=== PATIENT | male | born 1980 | race Caucasian/White ===

== ENCOUNTER 2020-04-25 15:49 | Inpatient (IN) | payer OTHER ==
--- NOTE | 2020-04-25 18:12 | BHS.RME ---
Substance Use & Tx History - Substance Use History Heroin Substance amount: 2 bundles Frequency of use: Daily Substance route: Injection (ex: intravenous or skin popping) Alcohol Substance amount: 2 pints Frequency of use: Daily Substance route: Oral Cannabis Frequency of use: Daily Substance route: Inhalation (ex: sniffing or snorting) Cocaine- Powder Substance amount: " I don't know how much " Frequency of use: Daily Substance route: Injection (ex: intravenous or skin popping) Benzodiazepines Substance amount: 1-2 sticks Frequency of use: Less than 3 times per week Substance route: Oral - Last Treatment Date of last treatment: december 2019 Where was last treatment: Detox Physical/Psych/Mental Status - Behavior General Behavior: Increased activity (restlessness, agitation) - Cooperativeness Cooperativeness: Reluctant, Hostile - Thinking Thought Processes: Logical Thought content: Future oriented - Physical Health Problems Is patient presently having any pain?: No Does patient presently have any injuries (include location): No Does patient currently have a fever: No COWS - Scale Resting Pulse: 0= [place] 80 or Below Sweatin= Chills/Flushing Restless Observation: 3= Extraneous Movement Pupil Size: 0= Normal to Room Light Bone or Joint Aches: 2= Severe Diffuse Aches Runny Nose/ Eye Tearin= Nasal Congestion GI Upset > 30mins: 0= None Tremor Observation: 1= Tremor [place], Not Seen Yawning Observation: 0= None Anxiety or Irritability: 4=Extreme Anxiety Goose Flesh Skin: 0=Smooth Skin COWS Score: 12 CIWA Nausea/Vomitin-No Nausea/No Vomiting Muscle Tremors: 1-None Visible, but [place] Anxiety: 4-Mod. Anxious/Guarded Agitation: 4-Moderately Restless Paroxysmal Sweats: 2 Orientation: 1-Uncertain about Date Tacttile Disturbances: 0-None Auditory Disturbances: 2-Mild Harshness/Frighten Visual Disturbances: 2-Mild Sensitivity Headache: 2-Mild CIWA-Ar Total Score: 18
--- NOTE | 2020-04-25 18:14 | HP ---
COWS - Scale Resting Pulse: 0= [place] 80 or Below Sweatin=Flushed/Facial Moisture Restless Observation: 5= Unable to Sit Still Pupil Size: 1= Pupils >than Normal Bone or Joint Aches: 4=Acute Joint/Muscle Pain Runny Nose/ Eye Tearin= Runny Nose/Eyes GI Upset > 30mins: 0= None Tremor Observation: 1= Tremor [place], Not Seen Yawning Observation: 2= >3x During Session Anxiety or Irritability: 4=Extreme Anxiety Goose Flesh Skin: 0=Smooth Skin COWS Score: 21 CIWA Score Nausea/Vomitin-No Nausea/No Vomiting Muscle Tremors: 1-None Visible, but [place] Anxiety: 4-Mod. Anxious/Guarded Agitation: 4-Moderately Restless Paroxysmal Sweats: 2 Orientation: 1-Uncertain about Date Tacttile Disturbances: 0-None Auditory Disturbances: 2-Mild Harshness/Frighten Visual Disturbances: 2-Mild Sensitivity Headache: 2-Mild CIWA-Ar Total Score: 18 - Admission Criteria OASAS Guidelines: Admission for Medically Managed Detox: Requires at least one of the followin. CIWA greater than 12 2. Seizures within the past 24 hours 3. Delirium tremens within the past 24 hours 4. Hallucinations within the past 24 hours 5. Acute intervention needed for co occurring medical disorder 6. Acute intervention needed for co occurring psychiatric disorder 7. Severe withdrawal that cannot be handled at a lower level of care (continued vomiting, continued diarrhea, abnormal vital signs) requiring intravenous medication and/or fluids 8. Admission ROS [facility] Allergies/Adverse Reactions: Allergies Allergy/AdvReac Type Severity Reaction Status Date / Time No Known Allergies Allergy Verified 04/25/20 18:08 History of Present Illness: 39 y.o. male requesting detox from heroin and alcohol use , latest use of alcohol yesterday , latest use of heroin was today . First age of use 13 for both heroin and alcohol . Pt is very poor historian due to withdrawal symptoms . tobacco : denies PMHX /PSHX : denies Exam Limitations: Clinical Condition - Review of Systems Constitutional: See HPI, Loss of Appetite EENT: reports: Nose Congestion Respiratory: reports: No Symptoms reported Cardiac: reports: No Symptoms Reported GI: reports: See HPI, Nausea, Poor Appetite : reports: No Symptoms Reported Musculoskeletal: reports: See HPI, Back Pain Integumentary: reports: See HPI Neuro: reports: Headache, Tremors Psychiatric: reports: Agitated, Anxious, Disorientated Patient History - Smoking Cessation Smoking history: Unknown if ever smoked Admission Physical Exam [facility] - Physical General Appearance: Yes: Disheveled, Severe Distress, Irritable, Sweating, Anxious HEENTM: Yes: Normocephalic, Normal Voice Respiratory: Yes: Chest Non-Tender, Lungs Clear, Normal Breath Sounds, No Respiratory Distress, No Accessory Muscle Use Neck: Yes: No masses,lesions,Nodules, Trachea in good position Cardiology: Yes: Regular Rhythm, Regular Rate, S1, S2 Abdominal: Yes: Non Tender, Soft Back: Yes: Normal Inspection Musculoskeletal: Yes: Gait Steady Extremities: Yes: Normal Range of Motion, Non-Tender, Tremors Neurological: Yes: Alert, Motor Strength 5/5 Integumentary: Yes: Warm, Track Bennett (bj UE / LE w/ erythema left wrist) - Diagnostic (1) Opioid dependence Current Visit: Yes Status: Acute Qualifiers: Substance use status: in withdrawal Qualified Code(s): F11.23 - Opioid dependence with withdrawal (2) Alcohol use disorder Current Visit: Yes Status: Chronic (3) Cocaine use disorder Current Visit: Yes Status: Chronic (4) Sedative abuse Current Visit: Yes Status: Suspected Inpatient Rehab Admission - Rehab Decision to Admit Inpatient rehab admission?: No
[2020-04-25] MEDS ORDERED: IBUPROFEN 400 MG TABLET (FP) PO PRN (18:17)
[2020-04-25] MEDS ORDERED: MENTHOL/PHENOL 1 EACH UD MM PRN (18:17)
[2020-04-25] MEDS ORDERED: MAG HYDROX/AL HYDROX/SIMETH 30 ML UNIT-DOSE CUP PO PRN (18:17)
[2020-04-25] MEDS ORDERED: NICOTINE POLACRILEX 2 MG GUM BUC PRN (18:17)
[2020-04-25] MEDS ORDERED: METHOCARBAMOL 500 MG TABLET PO PRN (18:17)
[2020-04-25] MEDS ORDERED: MAGNESIUM HYDROX 2400MG/30ML ORAL SUSPENSION 30 ML CUP PO PRN (18:17)
[2020-04-25] MEDS ORDERED: hydrOXYzine PAMOATE 25 MG CAPSULE (FP) PO PRN (18:17)
[2020-04-25] MEDS ORDERED: ACETAMINOPHEN 325 MG TABLET (FP) PO PRN ×2 (18:17)
[2020-04-25] MEDS ORDERED: MAGNESIUM CITRATE 300 ML BOTTLE PO PRN (18:17)
[2020-04-25] MEDS ORDERED: MELATONIN 5 MG TABLETS PO PRN (18:17)
[2020-04-25] MEDS ORDERED: ONDANSETRON *ODT* 4 MG TABLET SL ONE (18:17)
[2020-04-25] MEDS ORDERED: BISMUTH SUBSALICYLATE 524 MG/30 ML UD PO PRN (18:17)
[2020-04-25] MEDS ORDERED: chlordiazePOXIDE HCL 25 MG CAPSULE PO PRN (18:19)
[2020-04-25] MEDS ORDERED: METHADONE HCL 10 MG TABLET (FOR DETOX USE ONLY) PO ONE (18:20)
[2020-04-25] MEDS ORDERED: ONDANSETRON *ODT* 4 MG TABLET SL PRN (18:22)
[2020-04-25 18:23] VITALS: BMI 25.5
[2020-04-25] MEDS: chlordiazePOXIDE HCL 25 MG CAPSULE PO ONE ×2 (19:11→19:21)
[2020-04-25] MEDS: THIAMINE HCL 100 MG TABLET (FP) PO SCH (22:22)
[2020-04-25] MEDS: chlordiazePOXIDE HCL 25 MG CAPSULE PO SCH (22:22)
[2020-04-26] MEDS: chlordiazePOXIDE HCL 25 MG CAPSULE PO SCH ×4 (04:49→22:33)
[2020-04-26] MEDS ORDERED: METHOCARBAMOL 500 MG TABLET PO ONE (09:52)
[2020-04-26] MEDS ORDERED: DICYCLOMINE HCL 10 MG CAPSULE PO ONE (09:56)
--- NOTE | 2020-04-26 09:56 | CONSULT ---
[facility] Psychiatric Consult - Data Date of interview: 04/26/20 Admission source: [facility] Identifying data: Patient is a 39 year old single male, without children, unemployed, homeless, and is supported by [facility]. This is patient's first admission to detox at [facility]. Patient admitted to for alcohol, cocaine, opiate, and sedative dependence. Substance Abuse History: History of alcohol, opioid, cocaine, and sedative use. Medical History: denies Psychiatric History: Patient denies history of psychiatric hospitalization and outpatient care. Mr. Zhang reports history of several suicide attempt. Patient presents as irritable and agitated. Patient not interested in psychiatric services. Mr. Zhang informed typewriter mechanic that he plans on signing out after receiving his morning medications. Physical/Sexual Abuse/Trauma History: Not discussed. Mental Status Exam - Mental Status Exam Alert and Oriented to: Time, Place, Person Cognitive Function: Fair Patient Appearance: Unkempt Mood: Irritable Affect: Mood Congruent Patient Behavior: Agitated Speech Pattern: Clear Voice Loudness: Normal Thought Process: Goal Oriented Hallucinations: Denies Suicidal Ideation: Denies Homicidal Ideation: Denies Insight/Judgement: Poor Sleep: Fair Appetite: Fair Muscle strength/Tone: Normal Gait/Station: Normal Psychiatric Findings - Problem List ([place] 1, 2,3) (1) Substance induced mood disorder Current Visit: Yes Status: Acute (2) Opioid dependence Current Visit: Yes Status: Acute Qualifiers: Substance use status: in withdrawal Qualified Code(s): F11.23 - Opioid dependence with withdrawal (3) Alcohol use disorder Current Visit: Yes Status: Acute (4) Cocaine use disorder Current Visit: Yes Status: Acute (5) Sedative abuse Current Visit: Yes Status: Acute - Initial Treatment Plan Initial Treatment Plan: Psychoeducation provided. Detoxification in progress. Observation.
[2020-04-26] MEDS ORDERED: ONDANSETRON *ODT* 4 MG TABLET SL ONE (09:57)
--- NOTE | 2020-04-26 09:58 | EKG ---
Test Reason : Blood Pressure : / mmHG Vent. Rate : 062 BPM Atrial Rate : 062 BPM P-R Int : 164 ms QRS Dur : 084 ms QT Int : 462 ms P-R-T Axes : 073 035 026 degrees QTc Int : 468 ms SINUS RHYTHM with APCs OTHERWISE NORMAL ECG NO PREVIOUS ECGS AVAILABLE Confirmed by MD CLEMENCIA, LIZ ([id number]) on 04/26/2020 9:58:10 AM Referred By: Confirmed By:LIZ KHANNA MD
[2020-04-26] MEDS ORDERED: hydrOXYzine PAMOATE 50 MG CAPSULE (FP) PO SCH (10:00)
[2020-04-26] MEDS ORDERED: METHADONE (DETOX) 20 MG, METHADONE (DETOX) 5 MG PO ONE (10:00)
[2020-04-26] MEDS: PRENATAL VITAMINS W/ FOLIC ACID TABLET (FP) PO SCH (10:19)
[2020-04-26] MEDS ORDERED: METHADONE HCL 10 MG TABLET (FOR DETOX USE ONLY) ONE (10:21)
[2020-04-26] MEDS ORDERED: METHADONE HCL 5 MG TABLET (FOR DETOX USE ONLY) ONE (10:22)
--- NOTE | 2020-04-26 10:35 | PN ---
S CIWA - CIWA Score Nausea/Vomitin-Mild Nausea/No Vomiting Muscle Tremors: 2 Anxiety: 3 Agitation: 4-Moderately Restless Paroxysmal Sweats: 1-Minimal Palms Moist Orientation: 0-Oriented Tacttile Disturbances: 0-None Auditory Disturbances: 0-None Visual Disturbances: 2-Mild Sensitivity Headache: 3-Moderate CIWA-Ar Total Score: 16 BHS COWS - Scale Resting Pulse: 0= [place] 80 or Below Sweatin= Chills/Flushing Restless Observation: 0= Sits Still Pupil Size: 1= Pupils >than Normal Bone or Joint Aches: 2= Severe Diffuse Aches Runny Nose/ Eye Tearin= None GI Upset > 30mins: 2= Nausea/Diarrhea Tremor Observation of Outstretched Hands: 2= Slight Tremor Visible Yawning Observation: 0= None Anxiety or Irritability: 2=Irritable/Anxious Goose Flesh Skin: 3=Piloerection COWS Score: 13 S Progress Note (SOAP) Subjective: 39 years old male admitted on 04/25/20 for alcohol benzo opiate withdrawal sx management treating with librium and methadone detox regiment agitative restlessness trouble sleep at night belsomra 5 mg po x 1 anxiety restlessness 100 mg vistaril q6h x 2 days muscle cramping robaxin 500 mg po x 1 abdominal cramping bentyl 20 mg po x 1 nausea zofran 8 mg sl x 1 Objective: 04/26/20 10:41 Vital Signs - 24 hr 04/25/20 04/25/20 04/25/20 18:19 18:55 21:08 Temperature 98.4 F 98.0 F 97.8 F Pulse Rate 65 53 L 59 L Respiratory 16 18 17 Rate Blood Pressure 109/70 133/86 128/71 O2 Sat by Pulse 100 100 Oximetry (%) 04/26/20 04/26/20 05:51 08:35 Temperature 97.7 F 96.8 F L Pulse Rate 84 67 Respiratory 18 16 Rate Blood Pressure 144/89 120/60 O2 Sat by Pulse 100 Oximetry (%) 04/26/20 10:41 lab pending Assessment: 04/26/20 10:42 alcohol benzo opiate withdrawal Plan: librium and methadone regiments therapeutic comfort measure
[2020-04-26 11:51] LABS: HEMOGLOBIN 11.6 GM/dL (11.7-16.9); MCHC 32.2 g/dl (32.0-35.9); MEAN CELL VOLUME 87.1 fl (80-96); MEAN PLT VOLUME 8.4 fl (7.5-11.1); PLATELET COUNT 151 K/MM3 (134-434); RBC 4.14 M/mm3 (4.00-5.60); RDW 13.7 % (11.9-15.9); WHITE BLOOD COUNT 6.5 K/mm3 (4.0-10.0)
[2020-04-26 12:03] LABS: BILIRUBIN,TOTAL 0.3 mg/dL (0.2-1); BLOOD UREA NITROGEN 14.6 mg/dL (7-18); CALCIUM 8.3 mg/dL (8.5-10.1); CREATININE 0.7 mg/dL (0.55-1.3); POTASSIUM 3.9 mmol/L (3.5-5.1); TOT PROT 6.5 g/dl (6.4-8.2)
[2020-04-26] MEDS: hydrOXYzine PAMOATE 50 MG CAPSULE (FP) PO SCH ×3 (13:04→23:07)
[2020-04-26] MEDS ORDERED: SUVOREXANT 5 MG TABLET PO ONE (22:00)
[2020-04-26] MEDS: THIAMINE HCL 100 MG TABLET (FP) PO SCH (22:33)
[2020-04-27] MEDS: hydrOXYzine PAMOATE 50 MG CAPSULE (FP) PO SCH ×2 (06:25→11:06)
[2020-04-27] MEDS: chlordiazePOXIDE HCL 25 MG CAPSULE PO SCH ×2 (06:25→10:33)
[2020-04-27 08:58] VITALS: BP 124/77; PULSE 65; TEMP 97.3
[2020-04-27] MEDS ORDERED: METHADONE HCL 10 MG TABLET (FOR DETOX USE ONLY) PO ONE (10:00)
[2020-04-27] MEDS: PRENATAL VITAMINS W/ FOLIC ACID TABLET (FP) PO SCH (10:33)
--- NOTE | 2020-04-27 13:05 | DS ---
[facility] Detox Discharge Summary Admission Date: 04/25/20 Discharge Date: 04/27/20 - History Present History: Alcohol Dependence, Opioid Dependence, Sedative Dependence Additional Comments: 39 years old male admitted on 04/25/20 for alcohol benzo opiate withdrawal sx management treated with librium and methadone regiments mr coelho insists to leave the detox unit today vomited x 1 offer tigan IM "I just want to leave" denies suicidal denies homocidal ideation mr coelho is alert oriented x 3 speech clearly goal oriented behavior ambulating steady gaits refuses exist physical examination Pertinent Past History: time for discharge 21 minutes mr coelho avoid verbal communication with staff "give me my clothing" treatment team met with the patient to discuss the benefits of librium and methadone regiments completion mr coelho does not agree with medication assisted treatment program strong recommend mr coelho picking up narcan from pharmacy - Physical Exam Results Vital Signs: Vital Signs Temperature 97.3 F L 04/27/20 08:40 Pulse Rate 65 04/27/20 08:40 Respiratory Rate 18 04/27/20 08:40 Blood Pressure 124/77 04/27/20 08:40 O2 Sat by Pulse Oximetry (%) 100 04/26/20 21:17 Pertinent Admission Physical Exam Findings: alcohol benzo opiate withdrawal Laboratory Tests 04/26/20 04/26/20 04/26/20 08:15 08:15 08:15 WBC 6.5 RBC 4.14 Hgb 11.6 L Hct 36.0 MCV 87.1 MCH 28.0 MCHC 32.2 RDW 13.7 Plt Count 151 MPV 8.4 Sodium 143 Potassium 3.9 Chloride 111 H Carbon Dioxide 24 Anion Gap 7 L BUN 14.6 Creatinine 0.7 Est GFR (CKD-EPI)AfAm 137.78 Est GFR (CKD-EPI)NonAf 118.88 Random Glucose 80 Calcium 8.3 L Total Bilirubin 0.3 AST 73 H ALT 128 H Alkaline Phosphatase 75 Total Protein 6.5 Albumin 3.0 L Syphilis Serology Non-reactive lab noted - Treatment Hospital Course: Detox Protocol Followed Patient has Accepted a Rehab Referral to: [facility] - Medication Discharge Medications: Ambulatory Orders Naloxone HCl [Narcan] 4 mg NS ASDIR PRN #1 spray 04/27/20 - Diagnosis (1) Alcohol use disorder Current Visit: Yes Status: Acute (2) Opioid dependence Current Visit: Yes Status: Acute Qualifiers: Substance use status: in withdrawal Qualified Code(s): F11.23 - Opioid dependence with withdrawal (3) Sedative abuse Current Visit: Yes Status: Acute (4) Substance induced mood disorder Current Visit: Yes Status: Suspected - AMA Did Patient Leave Against Medical Advice: Yes
[2020-04-28] MEDS ORDERED: chlordiazePOXIDE HCL 10 MG CAPSULE PO PRN
[2020-04-28] MEDS ORDERED: chlordiazePOXIDE HCL 10 MG CAPSULE PO SCH (05:00)
[2020-04-28] MEDS ORDERED: METHADONE (DETOX) 10 MG, METHADONE (DETOX) 5 MG PO ONE (10:00)
[2020-04-29] MEDS ORDERED: chlordiazePOXIDE HCL 10 MG CAPSULE PO SCH (05:00)
[2020-04-29] MEDS ORDERED: METHADONE HCL 10 MG TABLET (FOR DETOX USE ONLY) PO ONE (10:00)
[2020-04-30] MEDS ORDERED: chlordiazePOXIDE HCL 10 MG CAPSULE PO ONE (05:00)
[2020-04-30] MEDS ORDERED: METHADONE HCL 5 MG TABLET (FOR DETOX USE ONLY) PO ONE (06:00)
== END 2020-04-27 11:44 | disposition left against medical advice (07) | DRG 770 ==
LOC: YASAS 15:49 → Y3N 18:17
PROVIDERS: ADMIT Allergy & Immunology; ATTEND Allergy & Immunology
PROC: HZ2ZZZZ Detoxification Services for Substance Abuse Treatment (ICD-10-PCS; principal; 2020-04-25)
DX: F10.230 Alcohol dependence with withdrawal, uncomplicated (principal); F11.23 Opioid dependence with withdrawal; F13.230 Sedative, hypnotic or anxiolytic dependence with withdrawal, uncomplicated; F14.20 Cocaine dependence, uncomplicated; F12.20 Cannabis dependence, uncomplicated; F19.24 Other psychoactive substance dependence with psychoactive substance-induced mood disorder; Z91.5 Personal history of self-harm; Z56.0 Unemployment, unspecified; Z59.0 Homelessness
CPT/HCPCS: 36415; 80053; 85027; 86780; 93005; 93010; Q0162; U0003